=== PATIENT | male | born 1985 | race Caucasian/White ===

== ENCOUNTER 2020-05-16 18:36 | Emergency (ER) | payer MEDICAID ==
[~2020-05-16] VITALS: Ht 167.6 cm; Wt 65.8 kg
--- NOTE | 2020-05-16 18:59 | NUR ---
Dr. Gardner at bedside for MSE.
--- NOTE | 2020-05-16 19:05 | NUR ---
Xray at bedside.
[2020-05-16] MEDS ORDERED: LIDOCAINE 1%-EPI 1:100,000 20 ML VIAL ONE (19:27)
[2020-05-16] MEDS ORDERED: CEphaleXIN 500 MG CAPSULE ONE (20:59)
[2020-05-16] MEDS ORDERED: SULFAMETH/TRIMETH 800/160 MG TABLET ONE (21:00)
[2020-05-16] MEDS ORDERED: SULFAMETH/TRIMETH 800/160 MG TABLET PO ONE (21:00)
[2020-05-16] MEDS ORDERED: CEphaleXIN 500 MG CAPSULE PO ONE (21:00)
--- NOTE | 2020-05-16 21:00 | NUR ---
Patient discharged to home in stable condition. Written and verbal after care instructions given. Patient verbalizes understanding of instructions. Stressed follow up or return to ER for worsening s/s. Patient out of ER with steady gait, no acute signs of distress, VSS, all belongings taken.
[2020-05-16 21:01] VITALS: BP 153/101
== END 2020-05-16 21:02 | disposition home or self-care (01) ==
LOC: ER 18:36
DX: L02.414 Cutaneous abscess of left upper limb (principal); L03.114 Cellulitis of left upper limb; S41.132S Puncture wound without foreign body of left upper arm, sequela; X78.8XXS Intentional self-harm by other sharp object, sequela
CPT/HCPCS: 10060; 73060; 99283; J3490; A4217; A4663

== ENCOUNTER 2020-05-21 11:02 | Emergency (ER) | payer MEDICAID ==
[~2020-05-21] VITALS: Ht 167.6 cm; Wt 65.8 kg
--- NOTE | 2020-05-21 11:07 | NUR ---
Dr Rosa at the bedside for MSE. Packing removed by .
--- NOTE | 2020-05-21 11:28 | NUR ---
Abscess site cleaned and dressing applied. Pt dosing off during the dressing change, and when awake asked for pain medication. Pt states if you don't give pain medication "I will go get drugs on the street." Pt adviced by ER MD to take OTC meds for pain, as needed.
[2020-05-21 11:32] VITALS: BP 137/88
--- NOTE | 2020-05-21 11:37 | NUR ---
Patient discharged to home in stable condition. Written and verbal after care instructions given. Patient verbalizes understanding of instructions. Stressed follow up or return to ER for worsening s/s.
== END 2020-05-21 11:49 | disposition home or self-care (01) ==
LOC: ER 11:03
DX: Z48.817 Encounter for surgical aftercare following surgery on the skin and subcutaneous tissue (principal); L02.414 Cutaneous abscess of left upper limb; S41.132S Puncture wound without foreign body of left upper arm, sequela; X78.8XXS Intentional self-harm by other sharp object, sequela; F19.10 Other psychoactive substance abuse, uncomplicated
CPT/HCPCS: A4663